=== PATIENT | male | born 1955 ===

== ENCOUNTER 2018-09-22 21:18 | Inpatient (IN) | payer OTHER ==
[~2018-09-22] VITALS: Ht 188 cm; Wt 96.9 kg
[2018-09-22 22:00] LABS: GLUCOSE,POINT OF CARE 97 MG/DL (70-110)
[2018-09-22] MEDS ORDERED: MULT-1192 PO (22:06)
[2018-09-22] MEDS ORDERED: DILT240C93 PO (22:06)
[2018-09-22] MEDS ORDERED: GLIP10 PO (22:06)
[2018-09-22] MEDS ORDERED: INSU3INS3 SQ (22:06)
[2018-09-22] MEDS ORDERED: NITR0.4T52 SL (22:06)
[2018-09-22] MEDS ORDERED: BIMA12.5OS IO (22:06)
[2018-09-22] MEDS ORDERED: SITA25 PO (22:06)
[2018-09-22] MEDS ORDERED: ASPI-1182 PO (22:06)
[2018-09-22] MEDS ORDERED: OMEP20 PO (22:06)
[2018-09-22] MEDS ORDERED: INSU100I3 SQ (22:06)
[2018-09-22] MEDS ORDERED: ATOR20TA86 PO (22:06)
[2018-09-22] MEDS ORDERED: FURO40 PO (22:06)
[2018-09-22] MEDS ORDERED: ISOS60TA4 PO (22:06)
[2018-09-22 22:50] LABS: BASOPHILS % (AUTO) 1.3 % (0.0-2.0); EOSINOPHILS % (AUTO) 2.1 % (1.0-6.0); HEMATOCRIT 27.6 % (41-53); HEMOGLOBIN 8.9 g/dL (13.5-17.5); LYMPHOCYTES # (AUTO) 1.9 K/uL (1.0-4.8); LYMPHOCYTES % (AUTO) 26.9 % (22.0-44.0); MEAN CORPUSCULAR HEMOGLOBIN 29.9 pg (26.0-34.0); MEAN CORPUSCULAR HGB CONC 32.2 G/dL (31.0-37.0); MEAN CORPUSCULAR VOLUME 93 fL (80-100); MONOCYTES # (AUTO) 0.6 K/uL (0.1-1.0); MONOCYTES % (AUTO) 8.8 % (2.0-9.0); NEUTROPHILS # (AUTO) 4.2 K/uL (1.8-7.7); NEUTROPHILS % (AUTO) 60.9 % (40.0-70.0); PLATELET COUNT (AUTO) 222 K/uL (150-450); RED BLOOD CELL COUNT(AUTO) 2.97 MIL/uL (4.50-5.90); RED CELL DISTRIBUTION WIDTH 15.4 % (11.5-14.5)
[2018-09-22 23:24] LABS: CALCIUM, TOTAL 7.6 mg/dL (8.8-10.5); CREATININE 7.76 mg/dL (0.60-1.30)
[2018-09-22 23:30] LABS: ALBUMIN 3.7 g/dL (3.4-5.0); BILIRUBIN,TOTAL 0.3 mg/dL (0.1-1.0); TOTAL PROTEIN, SERUM 6.7 g/dL (6.4-8.2)
[2018-09-23] VITALS (7 sets, daily range): BP systolic 139–177; BP diastolic 68–114
[2018-09-23] MEDS ORDERED: CloNIDine HCL 0.2 MG TABLET PO ONE (01:00)
[2018-09-23 04:55] LABS: GLUCOMETER DEV NAME(LOC) 4E.2; GLUCOSE,POINT OF CARE 74 MG/DL (70-110)
[2018-09-23] MEDS ORDERED: DEXTROSE 50%-WATER 25 GM/50 ML SYRINGE IVP ONE (04:57)
[2018-09-23] MEDS ORDERED: DEXTROSE 50%-WATER 25 GM/50 ML SYRINGE IVP PRN ×2 (05:15→08:30)
[2018-09-23] MEDS ORDERED: GLUCAGON,HUMAN RECOMBINANT 1 MG VIAL IM PRN (05:15)
[2018-09-23] MEDS ORDERED: INSULIN LISPRO 100 UNITS/ML SQ PRN (05:15)
[2018-09-23] MEDS ORDERED: BISACODYL 10 MG RECTAL RECTAL SUPPOSITORY PR PRN (05:30)
[2018-09-23 06:23] LABS: APPEARANCE,URINE CLEAR (CLEAR); BILIRUBIN,URINE NEGATIVE (NEGATIVE); GLUCOSE, URINE (UA) NEGATIVE (NEGATIVE); KETONES,URINE NEGATIVE (NEGATIVE); LEUKOCYTE ESTERASE ,URINE NEGATIVE (NEGATIVE); NITRATE,URINE NEGATIVE (NEGATIVE); OCCULT BLOOD,URINE MODERATE (NEGATIVE); PH,URINE 6.5 (5.0-8.0); PROTEIN,URINE SEE CONFIRM (NEGATIVE); UROBILINOGEN,URINE 0.2 mg/dL (<=1.0)
[2018-09-23 06:25] LABS: BACTERIA,URINE None Seen /HPF (None Seen); SQUAMOUS EPITHELIAL CELL,UR Rare /LPF (None Seen); SULFOSALICYLIC ACID,URINE 4+ (Negative)
[2018-09-23] MEDS: VITAMIN B COMP/VIT C/FOLIC ACID CAPSULE PO SCH (09:52)
[2018-09-23] MEDS: FAMOTIDINE 20 MG TABLET PO SCH (09:52)
[2018-09-23] MEDS: FUROSEMIDE 20 MG/2 ML VIAL IVP SCH (09:52)
[2018-09-23] MEDS: AmLODIPine BESYLATE 10 MG TABLET PO SCH (09:53)
[2018-09-23] MEDS: ASPIRIN 81 MG CHEWABLE TABLET PO SCH (09:53)
[2018-09-23] MEDS: DOCUSATE SODIUM 100 MG CAPSULE PO SCH ×2 (09:53→22:29)
[2018-09-23] MEDS: HEPARIN SODIUM,PORCINE 5,000 UNITS/ML VIAL SQ SCH ×2 (09:54→21:17)
[2018-09-23 11:35] LABS: GLUCOMETER DEV NAME(LOC) 4E.2; GLUCOSE,POINT OF CARE 47 MG/DL (70-110)
[2018-09-23 11:35] LABS: GLUCOMETER DEV NAME(LOC) 4E.2; GLUCOSE,POINT OF CARE 115 MG/DL (70-110)
[2018-09-23] MEDS: INSULIN LISPRO 100 UNITS/ML SQ PRN ×3 (11:57→22:11)
[2018-09-23 13:00] LABS: GLUCOMETER DEV NAME(LOC) 4E.2; GLUCOSE,POINT OF CARE 157 MG/DL (70-110)
[2018-09-23 17:11] LABS: PROTEIN,URINE RANDOM 6 mg/dL (0-11.9); UREA NITROGEN,URINE RANDOM 13 mg/dL (350-1000)
[2018-09-23 17:22] LABS: SODIUM,URINE RANDOM 107 mmol/l (20-110)
[2018-09-23 19:55] LABS: GLUCOMETER DEV NAME(LOC) 4E.2; GLUCOSE,POINT OF CARE 176 MG/DL (70-110)
[2018-09-23 21:04] LABS: CREATININE,URINE RANDOM 36.8 mg/dL (30.0-125.0)
[2018-09-23] MEDS: HydrALAZINE HCL 25 MG TABLET PO SCH (21:16)
[2018-09-23 23:40] LABS: GLUCOMETER DEV NAME(LOC) 4E.2; GLUCOSE,POINT OF CARE 222 MG/DL (70-110)
[2018-09-24 04:31] VITALS: BP 145/87
[2018-09-24 06:15] LABS: HEMATOCRIT 29.5 % (41-53); HEMOGLOBIN 9.5 g/dL (13.5-17.5); MEAN CORPUSCULAR HEMOGLOBIN 29.8 pg (26.0-34.0); MEAN CORPUSCULAR HGB CONC 32.2 G/dL (31.0-37.0); MEAN CORPUSCULAR VOLUME 93 fL (80-100); PLATELET COUNT (AUTO) 226 K/uL (150-450); RED BLOOD CELL COUNT(AUTO) 3.19 MIL/uL (4.50-5.90); RED CELL DISTRIBUTION WIDTH 15.2 % (11.5-14.5)
[2018-09-24 06:36] LABS: % IRON SATURATION 21.7 % (30-44)
[2018-09-24 06:50] LABS: CALCIUM, TOTAL 7.4 mg/dL (8.8-10.5); CREATININE 7.49 mg/dL (0.60-1.30); POTASSIUM 5.3 mmol/L (3.5-5.1)
[2018-09-24 06:51] LABS: GLUCOMETER DEV NAME(LOC) 4E.2; GLUCOSE,POINT OF CARE 97 MG/DL (70-110)
[2018-09-24 08:02] VITALS: BP 154/90
[2018-09-24] MEDS: HEPARIN SODIUM,PORCINE 5,000 UNITS/ML VIAL SQ SCH ×2 (08:22→20:35)
[2018-09-24] MEDS: AmLODIPine BESYLATE 10 MG TABLET PO SCH (08:26)
[2018-09-24] MEDS: DOCUSATE SODIUM 100 MG CAPSULE PO SCH ×2 (08:26→20:35)
[2018-09-24] MEDS: HydrALAZINE HCL 25 MG TABLET PO SCH (08:26)
[2018-09-24] MEDS: VITAMIN B COMP/VIT C/FOLIC ACID CAPSULE PO SCH (08:26)
[2018-09-24] MEDS: ASPIRIN 81 MG CHEWABLE TABLET PO SCH (08:26)
[2018-09-24] MEDS: FAMOTIDINE 20 MG TABLET PO SCH (08:26)
[2018-09-24] MEDS: FUROSEMIDE 20 MG/2 ML VIAL IVP SCH (08:26)
[2018-09-24 08:30] LABS: BAND NEUTROPHILS % (MANUAL) 2 % (0-5); LYMPHOCYTES % (MANUAL) 33 % (22-44); MONOCYTES % (MANUAL) 2 % (2-9); SEGMENTED NEUTROPHILS % 63 % (40-70)
[2018-09-24] MEDS ORDERED: SODIUM POLYSTYRENE SULFONATE 15 GM/60 ML SUSPENSION BOTTLE PO ONE (11:15)
[2018-09-24 11:45] VITALS: BP 147/87
[2018-09-24] MEDS: INSULIN LISPRO 100 UNITS/ML SQ PRN ×3 (12:03→20:36)
[2018-09-24] MEDS: HydrALAZINE HCL 50 MG TABLET PO SCH ×3 (13:24→20:35)
[2018-09-24 14:06] LABS: GLUCOMETER DEV NAME(LOC) 4E.2; GLUCOSE,POINT OF CARE 148 MG/DL (70-110)
[2018-09-24 16:22] VITALS: BP 155/91
[2018-09-24 18:58] LABS: CREATININE,URINE 55.9 mg/dL (30.0-125.0)
[2018-09-24 19:06] LABS: CREATININE,SERUM FOR CRCL 7.49 mg/dL (0.60-1.30)
[2018-09-24 20:00] VITALS: BP 152/75
[2018-09-24 20:56] LABS: GLUCOMETER DEV NAME(LOC) 4E.2; GLUCOSE,POINT OF CARE 173 MG/DL (70-110)
[2018-09-24 20:56] LABS: GLUCOMETER DEV NAME(LOC) 4E.2; GLUCOSE,POINT OF CARE 157 MG/DL (70-110)
[2018-09-24 23:05] VITALS: BP 142/84
[2018-09-25 04:10] VITALS: BP 144/82
[2018-09-25 06:40] LABS: GLUCOMETER DEV NAME(LOC) 4E.2; GLUCOSE,POINT OF CARE 139 MG/DL (70-110)
[2018-09-25 07:25] VITALS: BP 180/100
[2018-09-25 07:33] LABS: MAGNESIUM 1.5 mg/dL (1.80-2.40); PHOSPHORUS 6.1 mg/dL (2.5-4.9)
[2018-09-25] MEDS: VITAMIN B COMP/VIT C/FOLIC ACID CAPSULE PO SCH (08:06)
[2018-09-25] MEDS: DOCUSATE SODIUM 100 MG CAPSULE PO SCH ×2 (08:06→20:47)
[2018-09-25] MEDS: HydrALAZINE HCL 50 MG TABLET PO SCH ×3 (08:06→20:47)
[2018-09-25] MEDS: AmLODIPine BESYLATE 10 MG TABLET PO SCH (08:06)
[2018-09-25] MEDS: FAMOTIDINE 20 MG TABLET PO SCH (08:07)
[2018-09-25] MEDS: ASPIRIN 81 MG CHEWABLE TABLET PO SCH (08:07)
[2018-09-25] MEDS: FUROSEMIDE 20 MG/2 ML VIAL IVP SCH (08:08)
[2018-09-25] MEDS: HEPARIN SODIUM,PORCINE 5,000 UNITS/ML VIAL SQ SCH ×2 (09:02→20:47)
[2018-09-25] MEDS ORDERED: CloNIDine HCL 0.1 MG TABLET PO PRN (10:45)
[2018-09-25 11:10] VITALS: BP 156/89
[2018-09-25 12:06] LABS: GLUCOMETER DEV NAME(LOC) 4E.2; GLUCOSE,POINT OF CARE 173 MG/DL (70-110)
[2018-09-25] MEDS: INSULIN LISPRO 100 UNITS/ML SQ PRN ×2 (12:23→20:49)
[2018-09-25 15:10] VITALS: BP 138/66
[2018-09-25 16:56] LABS: GLUCOMETER DEV NAME(LOC) 4E.2; GLUCOSE,POINT OF CARE 137 MG/DL (70-110)
[2018-09-25 19:25] VITALS: BP 142/84
[2018-09-25 21:31] LABS: GLUCOMETER DEV NAME(LOC) 4E.2; GLUCOSE,POINT OF CARE 207 MG/DL (70-110)
[2018-09-25 23:55] VITALS: BP 137/84
[2018-09-26 05:30] VITALS: BP 155/85
[2018-09-26 06:40] LABS: GLUCOMETER DEV NAME(LOC) 4E.2; GLUCOSE,POINT OF CARE 119 MG/DL (70-110)
[2018-09-26 06:42] LABS: CALCIUM, TOTAL 6.5 mg/dL (8.8-10.5); CREATININE 7.35 mg/dL (0.60-1.30)
[2018-09-26] MEDS: HydrALAZINE HCL 50 MG TABLET PO SCH ×3 (07:48→19:43)
[2018-09-26] MEDS: ASPIRIN 81 MG CHEWABLE TABLET PO SCH (07:48)
[2018-09-26] MEDS: DOCUSATE SODIUM 100 MG CAPSULE PO SCH ×2 (07:48→19:44)
[2018-09-26] MEDS: FAMOTIDINE 20 MG TABLET PO SCH (07:48)
[2018-09-26] MEDS: VITAMIN B COMP/VIT C/FOLIC ACID CAPSULE PO SCH (07:48)
[2018-09-26] MEDS: AmLODIPine BESYLATE 10 MG TABLET PO SCH (07:48)
[2018-09-26] MEDS: HEPARIN SODIUM,PORCINE 5,000 UNITS/ML VIAL SQ SCH ×2 (07:49→19:43)
[2018-09-26] MEDS: FUROSEMIDE 20 MG/2 ML VIAL IVP SCH (07:49)
[2018-09-26 08:03] VITALS: BP 154/88
[2018-09-26 11:49] VITALS: BP 145/80
[2018-09-26 11:51] LABS: GLUCOMETER DEV NAME(LOC) 4E.2; GLUCOSE,POINT OF CARE 172 MG/DL (70-110)
[2018-09-26] MEDS: CALCIUM ACETATE 667 MG CAPSULE PO SCH ×2 (12:26→16:10)
[2018-09-26 16:30] VITALS: BP 150/75
[2018-09-26] MEDS: INSULIN LISPRO 100 UNITS/ML SQ PRN ×2 (17:27→19:45)
[2018-09-26 17:36] LABS: GLUCOMETER DEV NAME(LOC) 4E.2; GLUCOSE,POINT OF CARE 191 MG/DL (70-110)
[2018-09-26 19:31] VITALS: BP 154/82
[2018-09-27] VITALS (8 sets, daily range): BP systolic 130–177; BP diastolic 78–99
[2018-09-27 00:11] LABS: GLUCOMETER DEV NAME(LOC) 4E.2; GLUCOSE,POINT OF CARE 154 MG/DL (70-110)
[2018-09-27 06:31] LABS: GLUCOMETER DEV NAME(LOC) 4E.2; GLUCOSE,POINT OF CARE 104 MG/DL (70-110)
[2018-09-27] MEDS: VITAMIN B COMP/VIT C/FOLIC ACID CAPSULE PO SCH (08:03)
[2018-09-27] MEDS: HydrALAZINE HCL 50 MG TABLET PO SCH ×3 (08:03→20:31)
[2018-09-27] MEDS: CALCIUM ACETATE 667 MG CAPSULE PO SCH ×3 (08:04→16:53)
[2018-09-27] MEDS: AmLODIPine BESYLATE 10 MG TABLET PO SCH (08:04)
[2018-09-27] MEDS: ASPIRIN 81 MG CHEWABLE TABLET PO SCH (08:05)
[2018-09-27] MEDS: DOCUSATE SODIUM 100 MG CAPSULE PO SCH ×2 (08:05→20:31)
[2018-09-27] MEDS: FAMOTIDINE 20 MG TABLET PO SCH (08:05)
[2018-09-27] MEDS: HEPARIN SODIUM,PORCINE 5,000 UNITS/ML VIAL SQ SCH ×2 (08:06→20:29)
[2018-09-27] MEDS: FUROSEMIDE 20 MG/2 ML VIAL IVP SCH (08:07)
[2018-09-27] MEDS ORDERED: HEPARIN SODIUM 1000 UNITS/NS 500 ML ONE (10:18)
[2018-09-27] MEDS ORDERED: HEPARIN SODIUM,PORCINE 1,000 UNITS/ML 10 ML VIAL ONE (10:18)
[2018-09-27] MEDS ORDERED: LIDOCAINE 1%/EPI 1:200,000/PF 10 ML VIAL ONE (10:18)
[2018-09-27 10:20] LABS: INR 0.9 (0.9-1.1); PROTHROMBIN TIME 9.9 SEC (9.4-11.6)
[2018-09-27] MEDS: EPOETIN ALFA 10,000 UNITS/ML VIAL SQ SCH (11:01)
[2018-09-27 11:36] LABS: GLUCOMETER DEV NAME(LOC) 4E.2; GLUCOSE,POINT OF CARE 203 MG/DL (70-110)
[2018-09-27] MEDS ORDERED: HEPARIN SODIUM,PORCINE 1,000 UNITS/ML VIAL IVP ONE (12:00)
[2018-09-27] MEDS ORDERED: MIDAZOLAM HCL 2 MG/2 ML VIAL ONE (12:38)
[2018-09-27] MEDS ORDERED: FentaNYL CITRATE-PF 100 MCG/2 ML VIAL ONE (12:38)
[2018-09-27] MEDS ORDERED: CeFAZolin 1 GM/DEXTROSE 50 ML IV ONE ×2 (12:44→13:00)
[2018-09-27] MEDS ORDERED: MIDAZOLAM HCL 2 MG/2 ML VIAL IVP ONE (13:00)
[2018-09-27] MEDS ORDERED: FentaNYL CITRATE-PF 100 MCG/2 ML VIAL IVP ONE (13:00)
[2018-09-27] MEDS: ACETAMINOPHEN 325 MG TABLET PO PRN ×2 (16:53→21:04)
[2018-09-27] MEDS ORDERED: SODIUM CHLORIDE 0.9% 2,000 ML IV ONE (16:57)
[2018-09-27 17:31] LABS: GLUCOMETER DEV NAME(LOC) 4E.2; GLUCOSE,POINT OF CARE 134 MG/DL (70-110)
[2018-09-27] MEDS: INSULIN LISPRO 100 UNITS/ML SQ PRN (21:02)
[2018-09-28] MEDS: ACETAMINOPHEN 325 MG TABLET PO PRN ×2 (01:14→20:48)
[2018-09-28 04:10] VITALS: BP 153/75
[2018-09-28 07:14] VITALS: BP 140/70
[2018-09-28] MEDS: CALCIUM ACETATE 667 MG CAPSULE PO SCH ×3 (08:00→17:27)
[2018-09-28] MEDS: HEPARIN SODIUM,PORCINE 5,000 UNITS/ML VIAL SQ SCH ×2 (08:06→20:43)
[2018-09-28] MEDS: ASPIRIN 81 MG CHEWABLE TABLET PO SCH (08:14)
[2018-09-28] MEDS: FUROSEMIDE 20 MG/2 ML VIAL IVP SCH (08:14)
[2018-09-28] MEDS: VITAMIN B COMP/VIT C/FOLIC ACID CAPSULE PO SCH (08:15)
[2018-09-28] MEDS: HydrALAZINE HCL 50 MG TABLET PO SCH ×3 (08:15→20:48)
[2018-09-28] MEDS: FAMOTIDINE 20 MG TABLET PO SCH (08:15)
[2018-09-28] MEDS: DOCUSATE SODIUM 100 MG CAPSULE PO SCH ×2 (08:15→20:48)
[2018-09-28] MEDS: AmLODIPine BESYLATE 10 MG TABLET PO SCH (08:15)
[2018-09-28] MEDS ORDERED: SODIUM CHLORIDE 0.9% 2,000 ML IV ONE (10:04)
[2018-09-28 11:36] VITALS: BP 163/93
[2018-09-28 13:05] LABS: GLUCOMETER DEV NAME(LOC) 5N.2; GLUCOSE,POINT OF CARE 217 MG/DL (70-110)
[2018-09-28 13:05] LABS: GLUCOMETER DEV NAME(LOC) 5N.2; GLUCOSE,POINT OF CARE 214 MG/DL (70-110)
[2018-09-28 15:53] VITALS: BP 152/88
[2018-09-28] MEDS ORDERED: HEPARIN SODIUM,PORCINE 1,000 UNITS/ML VIAL IVP ONE (17:25)
[2018-09-28] MEDS: INSULIN LISPRO 100 UNITS/ML SQ PRN ×2 (17:29→21:30)
[2018-09-28 20:03] VITALS: BP 155/81
[2018-09-28 22:35] LABS: GLUCOMETER DEV NAME(LOC) 5S.1; GLUCOSE,POINT OF CARE 119 MG/DL (70-110)
[2018-09-28 22:35] LABS: GLUCOMETER DEV NAME(LOC) 5S.1; GLUCOSE,POINT OF CARE 260 MG/DL (70-110)
[2018-09-28 22:36] LABS: GLUCOMETER DEV NAME(LOC) 5S.1; GLUCOSE,POINT OF CARE 263 MG/DL (70-110)
[2018-09-29] VITALS (8 sets, daily range): BP systolic 135–157; BP diastolic 70–88
[2018-09-29 05:48] LABS: BASOPHILS % (AUTO) 1.2 % (0.0-2.0); EOSINOPHILS % (AUTO) 3.7 % (1.0-6.0); HEMOGLOBIN 8.8 g/dL (13.5-17.5); MEAN CORPUSCULAR HGB CONC 32.6 G/dL (31.0-37.0); MEAN CORPUSCULAR VOLUME 92 fL (80-100); MONOCYTES # (AUTO) 0.9 K/uL (0.1-1.0); MONOCYTES % (AUTO) 13.6 % (2.0-9.0); NEUTROPHILS # (AUTO) 3.5 K/uL (1.8-7.7); NEUTROPHILS % (AUTO) 51.5 % (40.0-70.0); PLATELET COUNT (AUTO) 179 K/uL (150-450); RED BLOOD CELL COUNT(AUTO) 2.93 MIL/uL (4.50-5.90); RED CELL DISTRIBUTION WIDTH 14.8 % (11.5-14.5)
[2018-09-29] MEDS: ACETAMINOPHEN 325 MG TABLET PO PRN ×2 (06:01→18:14)
[2018-09-29 06:05] LABS: PROTHROMBIN TIME 10.2 SEC (9.4-11.6)
[2018-09-29 06:23] LABS: CALCIUM, TOTAL 7.5 mg/dL (8.8-10.5); CREATININE 4.97 mg/dL (0.60-1.30); POTASSIUM 4.4 mmol/L (3.5-5.1)
[2018-09-29] MEDS: CALCIUM ACETATE 667 MG CAPSULE PO SCH ×3 (08:00→18:12)
[2018-09-29] MEDS: HEPARIN SODIUM,PORCINE 5,000 UNITS/ML VIAL SQ SCH ×2 (08:17→20:26)
[2018-09-29] MEDS: FUROSEMIDE 20 MG/2 ML VIAL IVP SCH (08:34)
[2018-09-29] MEDS: HydrALAZINE HCL 50 MG TABLET PO SCH ×3 (08:35→20:25)
[2018-09-29] MEDS: ASPIRIN 81 MG CHEWABLE TABLET PO SCH (08:35)
[2018-09-29] MEDS: AmLODIPine BESYLATE 10 MG TABLET PO SCH (08:36)
[2018-09-29] MEDS: DOCUSATE SODIUM 100 MG CAPSULE PO SCH ×2 (08:36→20:25)
[2018-09-29] MEDS: VITAMIN B COMP/VIT C/FOLIC ACID CAPSULE PO SCH (08:36)
[2018-09-29] MEDS: FAMOTIDINE 20 MG TABLET PO SCH (08:37)
[2018-09-29] MEDS: EPOETIN ALFA 10,000 UNITS/ML VIAL SQ SCH (08:39)
[2018-09-29] MEDS ORDERED: SODIUM CHLORIDE 0.9% 100 ML ONE (09:48)
[2018-09-29] MEDS: SOD FERRIC GLUC COMPLX/SUCROSE 125 MG in SODIUM CHLORIDE 0.9% 100 ML IV SCH (09:56)
[2018-09-29] MEDS ORDERED: SODIUM CHLORIDE 0.9% 1,000 ML IV ONE ×2 (11:00→14:16)
[2018-09-29] MEDS ORDERED: SODIUM CHLORIDE 0.9% 10 ML ONE (13:16)
[2018-09-29] MEDS ORDERED: LIDOCAINE/PF 1% 30 ML VIAL ONE (13:16)
[2018-09-29] MEDS ORDERED: HEPARIN SODIUM,PORCINE 5,000 UNITS/ML VIAL ONE (14:19)
[2018-09-29] MEDS ORDERED: HYDROmorphone 2 MG/ML SYRINGE IVP PRN (14:30)
[2018-09-29] MEDS ORDERED: FentaNYL CITRATE-PF 100 MCG/2 ML VIAL IVP PRN (14:30)
[2018-09-29] MEDS ORDERED: MEPERIDINE-PF 25 MG/ML VIAL IVP PRN (14:30)
[2018-09-29 14:35] LABS: GLUCOMETER DEV NAME(LOC) 5N.2; GLUCOSE,POINT OF CARE 156 MG/DL (70-110)
[2018-09-29] MEDS: INSULIN LISPRO 100 UNITS/ML SQ PRN ×2 (18:31→20:38)
[2018-09-29 19:15] LABS: GLUCOMETER DEV NAME(LOC) 5N.1; GLUCOSE,POINT OF CARE 232 MG/DL (70-110)
[2018-09-29] MEDS ORDERED: OXYGEN THERAPY IH SCH (20:00)
[2018-09-29 21:40] LABS: GLUCOMETER DEV NAME(LOC) 5S.1; GLUCOSE,POINT OF CARE 143 MG/DL (70-110)
[2018-09-30] MEDS: ACETAMINOPHEN 325 MG TABLET PO PRN ×4 (03:08→20:29)
[2018-09-30 03:37] VITALS: BP 147/75
[2018-09-30] MEDS ORDERED: LIDOCAINE/PF 2% 5 ML VIAL IM ONE (05:27)
[2018-09-30] MEDS ORDERED: MIDAZOLAM HCL 2 MG/2 ML VIAL IVP ONE (05:27)
[2018-09-30] MEDS ORDERED: PROPOFOL 1% 20 ML VIAL IVP ONE (05:27)
[2018-09-30] MEDS ORDERED: HEPARIN SODIUM,PORCINE 1,000 UNITS/ML VIAL IVP ONE ×2 (05:27→17:04)
[2018-09-30] MEDS ORDERED: FentaNYL CITRATE-PF 100 MCG/2 ML VIAL IVP ONE (05:27)
[2018-09-30] MEDS ORDERED: 0.9% SODIUM CHLORIDE 10 ML VIAL IVP ONE (05:27)
[2018-09-30] MEDS: INSULIN LISPRO 100 UNITS/ML SQ PRN ×3 (06:34→20:52)
[2018-09-30] MEDS: CALCIUM ACETATE 667 MG CAPSULE PO SCH ×3 (08:09→17:49)
[2018-09-30 08:19] VITALS: BP 144/80
[2018-09-30 11:41] LABS: GLUCOMETER DEV NAME(LOC) 5S.2A; GLUCOSE,POINT OF CARE 226 MG/DL (70-110)
[2018-09-30 11:56] LABS: GLUCOMETER DEV NAME(LOC) 5N.2; GLUCOSE,POINT OF CARE 233 MG/DL (70-110)
[2018-09-30 12:26] VITALS: BP 147/84
[2018-09-30] MEDS: FUROSEMIDE 20 MG/2 ML VIAL IVP SCH (12:33)
[2018-09-30] MEDS: VITAMIN B COMP/VIT C/FOLIC ACID CAPSULE PO SCH (12:33)
[2018-09-30] MEDS: ASPIRIN 81 MG CHEWABLE TABLET PO SCH (12:33)
[2018-09-30] MEDS: FAMOTIDINE 20 MG TABLET PO SCH (12:33)
[2018-09-30] MEDS: HEPARIN SODIUM,PORCINE 5,000 UNITS/ML VIAL SQ SCH ×2 (12:33→20:21)
[2018-09-30] MEDS: AmLODIPine BESYLATE 10 MG TABLET PO SCH (12:33)
[2018-09-30] MEDS: DOCUSATE SODIUM 100 MG CAPSULE PO SCH ×2 (12:33→20:21)
[2018-09-30] MEDS: HydrALAZINE HCL 50 MG TABLET PO SCH ×3 (12:34→20:22)
[2018-09-30] MEDS: SOD FERRIC GLUC COMPLX/SUCROSE 125 MG in SODIUM CHLORIDE 0.9% 100 ML IV SCH (13:42)
[2018-09-30 15:56] VITALS: BP 140/78
[2018-09-30 19:09] VITALS: BP 145/82
[2018-10-01 00:10] LABS: GLUCOMETER DEV NAME(LOC) 5S.1; GLUCOSE,POINT OF CARE 139 MG/DL (70-110)
[2018-10-01 00:15] VITALS: BP 154/74
[2018-10-01 00:30] LABS: GLUCOMETER DEV NAME(LOC) 5N.2; GLUCOSE,POINT OF CARE 251 MG/DL (70-110)
[2018-10-01 00:30] LABS: GLUCOMETER DEV NAME(LOC) 5N.2; GLUCOSE,POINT OF CARE 238 MG/DL (70-110)
[2018-10-01] MEDS: ACETAMINOPHEN 325 MG TABLET PO PRN ×3 (02:14→17:18)
[2018-10-01 04:07] VITALS: BP 156/80
[2018-10-01 06:23] LABS: BASOPHILS % (AUTO) 0.9 % (0.0-2.0); EOSINOPHILS % (AUTO) 3.5 % (1.0-6.0); HEMATOCRIT 26.8 % (41-53); HEMOGLOBIN 8.6 g/dL (13.5-17.5); LYMPHOCYTES % (AUTO) 30.3 % (22.0-44.0); MEAN CORPUSCULAR HEMOGLOBIN 29.9 pg (26.0-34.0); MEAN CORPUSCULAR HGB CONC 32.2 G/dL (31.0-37.0); MEAN CORPUSCULAR VOLUME 93 fL (80-100); MONOCYTES # (AUTO) 1.1 K/uL (0.1-1.0); MONOCYTES % (AUTO) 11.4 % (2.0-9.0); NEUTROPHILS # (AUTO) 5.2 K/uL (1.8-7.7); NEUTROPHILS % (AUTO) 53.9 % (40.0-70.0); PLATELET COUNT (AUTO) 183 K/uL (150-450); RED BLOOD CELL COUNT(AUTO) 2.89 MIL/uL (4.50-5.90); RED CELL DISTRIBUTION WIDTH 14.9 % (11.5-14.5)
[2018-10-01 06:42] LABS: POTASSIUM 4.5 mmol/L (3.5-5.1)
[2018-10-01 06:43] LABS: CREATININE 5.01 mg/dL (0.60-1.30); MAGNESIUM 1.6 mg/dL (1.80-2.40); PHOSPHORUS 4.5 mg/dL (2.5-4.9)
[2018-10-01 08:02] VITALS: BP 149/82
[2018-10-01] MEDS: EPOETIN ALFA 10,000 UNITS/ML VIAL SQ SCH (08:08)
[2018-10-01] MEDS: HEPARIN SODIUM,PORCINE 5,000 UNITS/ML VIAL SQ SCH (08:09)
[2018-10-01] MEDS: DOCUSATE SODIUM 100 MG CAPSULE PO SCH (08:10)
[2018-10-01] MEDS: FAMOTIDINE 20 MG TABLET PO SCH (08:10)
[2018-10-01] MEDS: ASPIRIN 81 MG CHEWABLE TABLET PO SCH (08:10)
[2018-10-01] MEDS: VITAMIN B COMP/VIT C/FOLIC ACID CAPSULE PO SCH (08:10)
[2018-10-01] MEDS: AmLODIPine BESYLATE 10 MG TABLET PO SCH (08:10)
[2018-10-01] MEDS: CALCIUM ACETATE 667 MG CAPSULE PO SCH ×3 (08:10→17:18)
[2018-10-01] MEDS: HydrALAZINE HCL 50 MG TABLET PO SCH ×2 (08:10→17:18)
[2018-10-01] MEDS: FUROSEMIDE 20 MG/2 ML VIAL IVP SCH (08:11)
[2018-10-01] MEDS ORDERED: MAGNESIUM SULFATE 3 GM in DEXTROSE 5%-WATER 100 ML IV ONE (10:15)
[2018-10-01 11:00] VITALS: BP 160/89
[2018-10-01] MEDS: INSULIN LISPRO 100 UNITS/ML SQ PRN ×2 (11:44→17:58)
[2018-10-01 12:10] LABS: GLUCOMETER DEV NAME(LOC) 5S.2A; GLUCOSE,POINT OF CARE 127 MG/DL (70-110)
[2018-10-01] MEDS: SOD FERRIC GLUC COMPLX/SUCROSE 125 MG in SODIUM CHLORIDE 0.9% 100 ML IV SCH (15:06)
[2018-10-01 15:29] VITALS: BP 118/52
[2018-10-01] MEDS ORDERED: AMLO10TA7 PO (16:40)
[2018-10-01] MEDS ORDERED: HYDR-2924 PO (16:40)
[2018-10-01] MEDS ORDERED: PHOSLOC PO (16:40)
[2018-10-01 19:55] LABS: GLUCOMETER DEV NAME(LOC) 5N.2; GLUCOSE,POINT OF CARE 211 MG/DL (70-110)
[2018-10-01 19:55] LABS: GLUCOMETER DEV NAME(LOC) 5N.2; GLUCOSE,POINT OF CARE 181 MG/DL (70-110)
[2018-10-02] MEDS ORDERED: EPOETIN ALFA 10,000 UNITS/ML VIAL SQ SCH (09:00)
== END 2018-10-01 18:52 | disposition home or self-care (01) | DRG 444 ==
LOC: EMS 21:18 → 4E 23:30 → 5S 09-27 17:10
PROVIDERS: ADMIT Internal Medicine; ATTEND Internal Medicine
PROC: 0JH63XZ Insertion of Tunneled Vascular Access Device into Chest Subcutaneous Tissue and Fascia, Percutaneous Approach (ICD-10-PCS; 2018-09-27)
PROC: 02HV33Z Insertion of Infusion Device into Superior Vena Cava, Percutaneous Approach (ICD-10-PCS; 2018-09-27)
PROC: B5181ZA Fluoroscopy of Superior Vena Cava using Low Osmolar Contrast, Guidance (ICD-10-PCS; 2018-09-27)
PROC: B548ZZA Ultrasonography of Superior Vena Cava, Guidance (ICD-10-PCS; 2018-09-27)
PROC: 5A1D70Z Performance of Urinary Filtration, Intermittent, Less than 6 Hours Per Day (ICD-10-PCS; 2018-09-27)
PROC: 5A1D70Z Performance of Urinary Filtration, Intermittent, Less than 6 Hours Per Day (ICD-10-PCS; 2018-09-28)
PROC: 03180ZD Bypass Left Brachial Artery to Upper Arm Vein, Open Approach (ICD-10-PCS; principal; 2018-09-29 12:00)
PROC: 5A1D70Z Performance of Urinary Filtration, Intermittent, Less than 6 Hours Per Day (ICD-10-PCS; 2018-09-30)
DX: I12.0 Hypertensive chronic kidney disease with stage 5 chronic kidney disease or end stage renal disease (principal); E11.40 Type 2 diabetes mellitus with diabetic neuropathy, unspecified; E11.21 Type 2 diabetes mellitus with diabetic nephropathy; N18.6 End stage renal disease; E11.22 Type 2 diabetes mellitus with diabetic chronic kidney disease; E11.319 Type 2 diabetes mellitus with unspecified diabetic retinopathy without macular edema; N25.81 Secondary hyperparathyroidism of renal origin; E87.2 Acidosis; E87.5 Hyperkalemia; E61.1 Iron deficiency; D63.1 Anemia in chronic kidney disease; E78.00 Pure hypercholesterolemia, unspecified; E78.5 Hyperlipidemia, unspecified; N39.0 Urinary tract infection, site not specified; Z82.49 Family history of ischemic heart disease and other diseases of the circulatory system; Z83.3 Family history of diabetes mellitus; Z87.891 Personal history of nicotine dependence; Z99.2 Dependence on renal dialysis
CPT/HCPCS: 36245; 36561; 76000; 76770; 76937; 81050; 82570; 82575; 82728; 83540; 83550; 83735; 83970; 84100; 84156; 84166; 84300; 84540; 85007; 86704; 86706; 87081; 87340; 89050; 93005; 93970; 97116; 97161; 97530; G0378; J0690; J0885; J1644; J1940; J2250; J2704; J2916; J3010; J3475; J3490; J7030; J7050; J7060